=== PATIENT | male | born 1945 ===

== ENCOUNTER 2021-11-07 12:08 | Outpatient (REF) | payer MEDICARE, SELFPAY ==
[2021-11-07 16:19] LABS: Abs Immature Grans 0.02 10^3/uL (0.0-0.06); Absolute Basophil Count 0.03 10^3/uL (0.0-0.2); Absolute Eosinophil Count 0.16 10^3/uL (0.0-0.7); Absolute Lymphocyte Count 1.74 10^3/uL (1.2-3.4); Absolute Monocyte Count 0.61 10^3/uL (0.1-0.8); Absolute Neutrophil Count 2.49 10^3/uL (1.2-6.7); Basophils % 0.6; Eosinophils % 3.2; HCT 46.9 % (40.0-50.0); Immature Grans % 0.4; Lymphocytes % 34.5; MCH 31.4 pg (27.0-33.0); MCHC 34.1 % (32.0-36.0); MCV 92.1 fL (80-95); MPV 9.9 fL (8.0-11.0); Monocytes % 12.1; Neutrophils % 49.2; Nucleated RBC 0 %; Platelet Count 254 10^3/uL (130-400); RBC 5.09 10^6/uL (4.36-5.78); RDW 12.7 % (11.8-14.1); RDW-SD 42.9 fL; WBC 5.05 10^3/uL (4.4-10.8)
[2021-11-07 16:43] LABS: Anion Gap 8.6 mmol/L (3-11); BUN 17 mg/dL (7-18); CO2 26.4 mmol/L (21.0-32.0); CREATININE 1.2 mg/dL (0.70-1.30); Calculated LDL 84 mg/dL (<100); Chloride 105 mmol/L (98-107); Cholesterol 136 mg/dL (<200); Estimated GFR 59.02 (mL/min/1.73m2); Glucose 107 mg/dL (74-106); HDL Cholesterol 35 mg/dL (40-60); Potassium 4.4 mmol/L (3.5-5.1); Sodium 140 mmol/L (136-145); Triglyceride 87 mg/dL (<150)
[2021-11-10 10:56] LABS: PSA, Screening 0.1 ng/mL (0.0-6.5)
== END 2021-11-07 12:09 | disposition home or self-care (01) ==
LOC: NCHCN 12:08
PROVIDERS: PCP Internal Medicine; Visit Provider Internal Medicine
DX: I25.10 Atherosclerotic heart disease of native coronary artery without angina pectoris (principal); Z12.5 Encounter for screening for malignant neoplasm of prostate; E66.3 Overweight; I42.9 Cardiomyopathy, unspecified
CPT/HCPCS: 80048; 80061; 84153; 85025